=== PATIENT | male | born 1995 | race Two or more races ===

== ENCOUNTER 2023-11-07 23:52 | Emergency (ER) | payer OTHER, SELFPAY ==
[2023-11-08 00:26] LABS: BASO # 0.1 10^3/uL (0.0-0.2); BASO % 0.5 % (0.0-1.0); EOS # 1.7 10^3/uL (0.0-0.5); EOS % 15.2 % (0.0-3.0); HEMATOCRIT 48.5 % (42.0-52.0); HEMOGLOBIN 17.3 g/dl (13.5-17.5); LYMPH # 3.9 10^3/uL (1.5-5.0); LYMPH % 34.7 % (24.0-44.0); MEAN CORPUSCULAR HEMOGLOBIN 29.5 pg (27.0-33.0); MEAN CORPUSCULAR HGB CONC 35.7 g/dl (32.0-36.5); MEAN CORPUSCULAR VOLUME 82.6 fl (80.0-96.0); MONO # 1.3 10^3/uL (0.0-0.8); MONO % 11.2 % (2.0-8.0); NEUTROPHILS # 4.3 10^3/uL (1.5-8.5); NEUTROPHILS % 38.1 % (36.0-66.0); PLATELET COUNT, AUTOMATED 203 10^3/uL (150-450); RED BLOOD COUNT 5.87 10^6/uL (4.30-6.10); WHITE BLOOD COUNT 11.3 10^3/uL (4.0-10.0)
[2023-11-08 00:50] LABS: LIPASE 44 U/L (12-53)
[2023-11-08 00:53] LABS: ALBUMIN 4.1 G/DL (3.2-5.2); ALKALINE PHOSPHATASE 87 U/L (46-116); ALT/SGPT 44 U/L (7.0-40); AST/SGOT 20 U/L (<34); BILIRUBIN,DIRECT 0.2 MG/DL (<0.4); BILIRUBIN,TOTAL 0.8 MG/DL (0.3-1.2); BLOOD UREA NITROGEN 13 MG/DL (9-23); CALCIUM LEVEL 8.9 MG/DL (8.5-10.1); CARBON DIOXIDE LEVEL 27 MMOL/L (20-31); CHLORIDE LEVEL 106 MMOL/L (98-107); CREATININE FOR GFR 0.91 MG/DL (0.70-1.30); GLOMERULAR FILTRATION RATE > 60.0 (>60); GLUCOSE, FASTING 85 MG/DL (60-100); SODIUM LEVEL 138 MMOL/L (136-145); TOTAL PROTEIN 6.9 G/DL (5.7-8.2)
[2023-11-08] MEDS ORDERED: ISOVUE-370 76% 100ML VIAL As Ordered ONE (06:23)
[2023-11-08] MEDS: KETOROLAC 30 MG/ML 1ML VIAL IV ONE (06:38)
[2023-11-08 06:39] LABS: C REACTIVE PROTEIN QUANTITATIV < 0.40 MG/DL (<1.0)
[2023-11-08] MEDS ORDERED: ACET325C5 PO (08:13)
[2023-11-08] MEDS ORDERED: IBUP-1022 PO (08:13)
[2023-11-08 08:30] VITALS: BP 94/51
[2023-11-08 08:47] VITALS: TEMP 97.8; O2SAT 98
[2023-11-08] MEDS: ACETAMINOPHEN 500 MG TAB PO ONE (08:51)
== END 2023-11-08 09:07 | disposition home or self-care (01) ==
LOC: M ED 23:52
DX: R10.33 Periumbilical pain (principal); K52.89 Other specified noninfective gastroenteritis and colitis; F17.200 Nicotine dependence, unspecified, uncomplicated; Z79.1 Long term (current) use of non-steroidal anti-inflammatories (NSAID)
CPT/HCPCS: 74177; 80048; 80076; 81001; 83690; 85025; 86140; 96374; 99285; J1885; Q9967

== ENCOUNTER 2023-12-07 09:41 | Emergency (ER) | payer MEDICAID, SELFPAY ==
[~2023-12-07] VITALS: Ht 182.9 cm; Wt 88.8 kg
[~2023-12-07 09:41] MED LIST: ACET325C5 PO; ACET32TAB PO; CIPR-249 PO; IBUP-1022 PO; TRAM50TA2 PO
[2023-12-07 12:49] LABS: BASO % 0.4 % (0.0-1.0); EOS # 0.9 10^3/uL (0.0-0.5); EOS % 12.5 % (0.0-3.0); HEMATOCRIT 47.6 % (42.0-52.0); HEMOGLOBIN 17.3 g/dl (13.5-17.5); LYMPH # 2.1 10^3/uL (1.5-5.0); LYMPH % 29.2 % (24.0-44.0); MEAN CORPUSCULAR HEMOGLOBIN 30.4 pg (27.0-33.0); MEAN CORPUSCULAR HGB CONC 36.3 g/dl (32.0-36.5); MEAN CORPUSCULAR VOLUME 83.5 fl (80.0-96.0); MONO # 0.8 10^3/uL (0.0-0.8); MONO % 11.1 % (2.0-8.0); NEUTROPHILS # 3.4 10^3/uL (1.5-8.5); NEUTROPHILS % 46.7 % (36.0-66.0); PLATELET COUNT, AUTOMATED 191 10^3/uL (150-450); WHITE BLOOD COUNT 7.3 10^3/uL (4.0-10.0)
[2023-12-07 12:54] LABS: LIPASE 36 U/L (12-53)
[2023-12-07 12:56] LABS: AMYLASE 80 U/L (30-118)
[2023-12-07 12:57] LABS: ALBUMIN 4.2 G/DL (3.2-5.2); ALKALINE PHOSPHATASE 88 U/L (46-116); ALT/SGPT 39 U/L (7.0-40); AST/SGOT 18 U/L (<34); BILIRUBIN,DIRECT 0.5 MG/DL (<0.4); BILIRUBIN,TOTAL 1.8 MG/DL (0.3-1.2); BLOOD UREA NITROGEN 11 MG/DL (9-23); CALCIUM LEVEL 9.3 MG/DL (8.5-10.1); CARBON DIOXIDE LEVEL 30 MMOL/L (20-31); CHLORIDE LEVEL 104 MMOL/L (98-107); CREATININE FOR GFR 0.98 MG/DL (0.70-1.30); GLOMERULAR FILTRATION RATE > 60.0 (>60); GLUCOSE, FASTING 93 MG/DL (60-100); POTASSIUM SERUM 3.7 MMOL/L (3.5-5.1); SODIUM LEVEL 138 MMOL/L (136-145); TOTAL PROTEIN 6.9 G/DL (5.7-8.2)
[2023-12-07] MEDS ORDERED: METOCLOPRAMIDE 5 MG TAB PO ONE (17:45)
[2023-12-07 18:17] LABS: MONO REFLEX EBV COMP NEGATIVE (NEGATIVE)
[2023-12-07 18:39] LABS: HIV 1&2 SCREEN NEGATIVE (NEGATIVE)
[2023-12-07] MEDS ORDERED: REGL10TA6 PO (18:40)
[2023-12-07] MEDS ORDERED: PILL CUTTER 1 EACH XX ONE (18:41)
[2023-12-07 18:47] LABS: HEPATITIS B CORE ANTIBODY IGM NEGATIVE (NEGATIVE)
[2023-12-07 18:48] LABS: HEPATITIS C VIRUS ABY INDEX 0.03 INDEX (<0.8)
[2023-12-07 18:55] LABS: HEPATITIS B SURFACE ANTIGEN POSITIVE (NEGATIVE)
[2023-12-07 19:05] VITALS: BP 116/74; TEMP 97.6; O2SAT 97
[2023-12-07] MEDS: METOCLOPRAMIDE 10MG TAB PO ONE (19:07)
[2023-12-13 12:45] LABS: EBV VIRAL CAPSID AG IGM < 36.00 U/mL (<36.00)
[2023-12-13 12:47] LABS: EBV AB TO NUCLEAR ANTIGEN < 18.00 U/mL (<18.00)
[2023-12-13 12:53] LABS: EHRLICHIA CAFFEENSIS IGM <1:20 (<1:20)
[2023-12-13 12:54] LABS: ROCKY MTN SPOTTED FEVER IGM NOT DETECTED (NOT DETECT)
[2023-12-13 12:55] LABS: LYME TOTAL ANTIBODY CIA <= 0.90 INDEX (<=0.90)
[2023-12-16 09:08] LABS: HBsAG CONFIRM SCRN Confirm. indicated (Negative); HBsAG NEUTRALIZATION Positive (.)
== END 2023-12-07 19:08 | disposition home or self-care (01) ==
LOC: MERGE 09:41 → M ED 09:41
DX: R53.83 Other fatigue (principal); R10.9 Unspecified abdominal pain; R63.4 Abnormal weight loss; R63.0 Anorexia; Z87.891 Personal history of nicotine dependence; Z79.899 Other long term (current) drug therapy

== ENCOUNTER 2023-12-08 19:31 | Emergency (ER) | payer MEDICAID, SELFPAY ==
[~2023-12-08] VITALS: Ht 185.4 cm; Wt 89.2 kg
[~2023-12-08 19:31] MED LIST changes: +REGL10TA6 PO
[2023-12-08 22:32] LABS: APPEARANCE, URINE CLEAR (CLEAR); BACTERIA, URINE AUTO NEGATIVE (NEGATIVE); BILIRUBIN, URINE AUTO NEGATIVE (NEGATIVE); BLOOD, URINE BLOOD NEGATIVE (NEGATIVE); COLOR, URINE YELLOW (YELLOW); GLUCOSE, URINE (UA) AUTO NEGATIVE (NEGATIVE); KETONE, URINE AUTO NEGATIVE (NEGATIVE); LEUKOCYTE ESTERASE, URINE AUTO NEGATIVE (NEGATIVE); NITRITE, URINE AUTO NEGATIVE (NEGATIVE); PROTEIN, URINE AUTO NEGATIVE (NEGATIVE); RBC, URINE AUTO 0 /HPF (0-3); SPECIFIC GRAVITY URINE AUTO 1.006 (1.002-1.035); SQUAMOUS EPITHELIAL CELL UR AU 0 /HPF (0-6); UROBILINOGEN, URINE AUTO 0.2 mg/dL (0.0-2.0); WBC, URINE AUTO 1 /HPF (0-3)
[2023-12-08 22:33] LABS: BASO % 0.5 % (0.0-1.0); EOS % 12.2 % (0.0-3.0); HEMATOCRIT 46.2 % (42.0-52.0); HEMOGLOBIN 17.1 g/dl (13.5-17.5); LYMPH # 3.1 10^3/uL (1.5-5.0); MEAN CORPUSCULAR HEMOGLOBIN 30.5 pg (27.0-33.0); MEAN CORPUSCULAR VOLUME 82.4 fl (80.0-96.0); MONO # 0.8 10^3/uL (0.0-0.8); MONO % 9.8 % (2.0-8.0); NEUTROPHILS # 3.5 10^3/uL (1.5-8.5); NEUTROPHILS % 41.3 % (36.0-66.0); PLATELET COUNT, AUTOMATED 189 10^3/uL (150-450); RED BLOOD COUNT 5.61 10^6/uL (4.30-6.10); WHITE BLOOD COUNT 8.6 10^3/uL (4.0-10.0)
[2023-12-08 22:53] LABS: INR 1.13; PARTIAL THROMBOPLASTIN TIME 27.6 SECONDS (24.8-34.2); PROTHROMBIN TIME 14.2 SECONDS (12.5-14.5)
[2023-12-08 22:58] LABS: LIPASE 34 U/L (12-53)
[2023-12-08 23:00] LABS: ALBUMIN 4.2 G/DL (3.2-5.2); ALKALINE PHOSPHATASE 86 U/L (46-116); ALT/SGPT 35 U/L (7.0-40); AST/SGOT 13 U/L (<34); BILIRUBIN,DIRECT 0.5 MG/DL (<0.4); BILIRUBIN,TOTAL 1.5 MG/DL (0.3-1.2); BLOOD UREA NITROGEN 13 MG/DL (9-23); CALCIUM LEVEL 8.9 MG/DL (8.5-10.1); CARBON DIOXIDE LEVEL 26 MMOL/L (20-31); CHLORIDE LEVEL 107 MMOL/L (98-107); GLOMERULAR FILTRATION RATE > 60.0 (>60); GLUCOSE, FASTING 86 MG/DL (60-100); POTASSIUM SERUM 3.6 MMOL/L (3.5-5.1); SODIUM LEVEL 141 MMOL/L (136-145)
[2023-12-08] MEDS: NS 1,000 ML IV ONE (23:24)
[2023-12-09] MEDS: ONDANSETRON 4MG 2ML VIAL IV ONE (01:06)
[2023-12-09 01:11] VITALS: BP 127/69; TEMP 98.2; O2SAT 100
[2023-12-09] MEDS ORDERED: ONDA-284 PO (01:28)
[2023-12-10] MEDS ORDERED: PROT1TAB2 PO (01:26)
== END 2023-12-09 02:17 | disposition home or self-care (01) ==
LOC: M ED 19:31
DX: R10.11 Right upper quadrant pain (principal); R53.83 Other fatigue; R11.2 Nausea with vomiting, unspecified; K73.9 Chronic hepatitis, unspecified; Z87.891 Personal history of nicotine dependence; Z79.899 Other long term (current) drug therapy
CPT/HCPCS: 76705; 80048; 80076; 81001; 83690; 85025; 85610; 85730; 87086; 96361; 96374; 99284; J2405

== ENCOUNTER 2023-12-09 21:56 | Emergency (ER) | payer MEDICAID, SELFPAY ==
[~2023-12-09 21:56] MED LIST changes: +ONDA-284 PO
[2023-12-09 23:01] LABS: BASO % 0.4 % (0.0-1.0); EOS % 13.6 % (0.0-3.0); HEMATOCRIT 45.7 % (42.0-52.0); HEMOGLOBIN 16.6 g/dl (13.5-17.5); LYMPH # 2.4 10^3/uL (1.5-5.0); MEAN CORPUSCULAR HEMOGLOBIN 30.3 pg (27.0-33.0); MEAN CORPUSCULAR HGB CONC 36.3 g/dl (32.0-36.5); MEAN CORPUSCULAR VOLUME 83.4 fl (80.0-96.0); MONO # 0.7 10^3/uL (0.0-0.8); MONO % 8.6 % (2.0-8.0); NEUTROPHILS # 3.4 10^3/uL (1.5-8.5); NEUTROPHILS % 45.3 % (36.0-66.0); PLATELET COUNT, AUTOMATED 180 10^3/uL (150-450); RED BLOOD COUNT 5.48 10^6/uL (4.30-6.10); WHITE BLOOD COUNT 7.6 10^3/uL (4.0-10.0)
[2023-12-09 23:26] LABS: LIPASE 31 U/L (12-53)
[2023-12-09 23:28] LABS: ALBUMIN 4.1 G/DL (3.2-5.2); ALKALINE PHOSPHATASE 83 U/L (46-116); ALT/SGPT 36 U/L (7.0-40); AST/SGOT 17 U/L (<34); BILIRUBIN,DIRECT 0.5 MG/DL (<0.4); BILIRUBIN,TOTAL 1.5 MG/DL (0.3-1.2); BLOOD UREA NITROGEN 10 MG/DL (9-23); CALCIUM LEVEL 8.9 MG/DL (8.5-10.1); CARBON DIOXIDE LEVEL 28 MMOL/L (20-31); CHLORIDE LEVEL 107 MMOL/L (98-107); CREATININE FOR GFR 0.92 MG/DL (0.70-1.30); GLOMERULAR FILTRATION RATE > 60.0 (>60); GLUCOSE, FASTING 88 MG/DL (60-100); POTASSIUM SERUM 3.8 MMOL/L (3.5-5.1); SODIUM LEVEL 141 MMOL/L (136-145); TOTAL PROTEIN 6.9 G/DL (5.7-8.2)
[2023-12-10] MEDS: ONDANSETRON 4MG 2ML VIAL IV ONE (00:31)
[2023-12-10] MEDS: NS 1,000 ML IV ONE (00:32)
[2023-12-10] MEDS ORDERED: ISOVUE-370 76% 100ML VIAL As Ordered ONE (00:39)
[2023-12-10] MEDS ORDERED: PROT1TAB2 PO (01:26)
[2023-12-10 01:27] VITALS: BP 133/75; TEMP 97.6; O2SAT 98
[2023-12-10] MEDS: PANTOPRAZOLE 40MG TAB (PROTONIX) PO ONE (01:44)
== END 2023-12-10 01:46 | disposition home or self-care (01) ==
LOC: M ED 21:56
DX: R11.2 Nausea with vomiting, unspecified (principal); B18.1 Chronic viral hepatitis B without delta-agent; Z79.899 Other long term (current) drug therapy
CPT/HCPCS: 74177; 80048; 80076; 83690; 85025; 86850; 86900; 86901; 93041; 96374; 99284; J2405; Q9967

== ENCOUNTER 2023-12-21 08:42 | Emergency (ER) | payer MEDICAID, SELFPAY ==
[~2023-12-21] VITALS: Ht 188 cm; Wt 86.8 kg
[~2023-12-21 08:42] MED LIST changes: +PROT1TAB2 PO
[2023-12-21] MEDS: NORCO, ANEXSIA 5/325MG TABLET (HYDROcodone/ACETAMINOPHEN) PO ONE (10:16)
[2023-12-21 10:39] LABS: BASO % 0.5 % (0.0-1.0); EOS # 0.9 10^3/uL (0.0-0.5); EOS % 13.8 % (0.0-3.0); HEMATOCRIT 47.2 % (42.0-52.0); HEMOGLOBIN 17.2 g/dl (13.5-17.5); LYMPH # 1.9 10^3/uL (1.5-5.0); LYMPH % 30.7 % (24.0-44.0); MEAN CORPUSCULAR HEMOGLOBIN 30.4 pg (27.0-33.0); MEAN CORPUSCULAR HGB CONC 36.4 g/dl (32.0-36.5); MEAN CORPUSCULAR VOLUME 83.4 fl (80.0-96.0); MONO # 0.7 10^3/uL (0.0-0.8); MONO % 11.1 % (2.0-8.0); NEUTROPHILS # 2.8 10^3/uL (1.5-8.5); NEUTROPHILS % 43.7 % (36.0-66.0); PLATELET COUNT, AUTOMATED 160 10^3/uL (150-450); RED BLOOD COUNT 5.66 10^6/uL (4.30-6.10); WHITE BLOOD COUNT 6.3 10^3/uL (4.0-10.0)
[2023-12-21 10:51] LABS: INR 1.13; PARTIAL THROMBOPLASTIN TIME 27.1 SECONDS (24.8-34.2); PROTHROMBIN TIME 14.2 SECONDS (12.5-14.5)
[2023-12-21 11:03] LABS: LIPASE 34 U/L (12-53)
[2023-12-21 11:04] LABS: ALBUMIN 4.1 G/DL (3.2-5.2); ALKALINE PHOSPHATASE 86 U/L (46-116); ALT/SGPT 45 U/L (7.0-40); AMYLASE 74 U/L (30-118); AST/SGOT 19 U/L (<34); BILIRUBIN,DIRECT 0.5 MG/DL (<0.4); BILIRUBIN,TOTAL 1.7 MG/DL (0.3-1.2); BLOOD UREA NITROGEN 9 MG/DL (9-23); CALCIUM LEVEL 9.3 MG/DL (8.5-10.1); CARBON DIOXIDE LEVEL 28 MMOL/L (20-31); CHLORIDE LEVEL 105 MMOL/L (98-107); CREATININE FOR GFR 1.06 MG/DL (0.70-1.30); GLOMERULAR FILTRATION RATE > 60.0 (>60); GLUCOSE, FASTING 90 MG/DL (60-100); POTASSIUM SERUM 3.6 MMOL/L (3.5-5.1); SODIUM LEVEL 138 MMOL/L (136-145); TOTAL PROTEIN 6.6 G/DL (5.7-8.2)
[2023-12-21] MEDS ORDERED: OMEP-173 PO (12:43)
[2023-12-21] MEDS ORDERED: ONDA-282 PO (12:43)
[2023-12-21 12:49] VITALS: BP 109/76; TEMP 97.5; O2SAT 97
[2023-12-21] MEDS: OMEPRAZOLE 20MG CAP PO ONE (13:07)
== END 2023-12-21 13:13 | disposition home or self-care (01) ==
LOC: M ED 08:42
DX: R10.9 Unspecified abdominal pain (principal); B18.1 Chronic viral hepatitis B without delta-agent; Z79.899 Other long term (current) drug therapy

== ENCOUNTER → 2023-12-28 | Outpatient (CLI) | payer MEDICAID, SELFPAY ==
[~2023-12-28] MED LIST changes: +OMEP-173 PO; +ONDA-282 PO
[2023-12-28 10:30] LABS: ERYTHROCYTE SEDIMENTATION RATE 3 mm/hr (0-15)
[2023-12-28 10:55] LABS: C REACTIVE PROTEIN QUANTITATIV < 0.40 MG/DL (<1.0)
[2023-12-28 12:58] LABS: BASO % 0.5 % (0.0-1.0); EOS % 14.8 % (0.0-3.0); HEMATOCRIT 49.4 % (42.0-52.0); HEMOGLOBIN 17.6 g/dl (13.5-17.5); LYMPH # 1.7 10^3/uL (1.5-5.0); LYMPH % 25.4 % (24.0-44.0); MEAN CORPUSCULAR HEMOGLOBIN 29.9 pg (27.0-33.0); MEAN CORPUSCULAR HGB CONC 35.6 g/dl (32.0-36.5); MEAN CORPUSCULAR VOLUME 83.9 fl (80.0-96.0); MONO # 0.7 10^3/uL (0.0-0.8); NEUTROPHILS # 3.2 10^3/uL (1.5-8.5); NEUTROPHILS % 48.1 % (36.0-66.0); PLATELET COUNT, AUTOMATED 188 10^3/uL (150-450); RED BLOOD COUNT 5.89 10^6/uL (4.30-6.10); WHITE BLOOD COUNT 6.6 10^3/uL (4.0-10.0)
[2023-12-28 12:59] LABS: FREE T4 1.33 NG/DL (0.89-1.76); THYROID STIMULATING HORMONE 0.864 uIU/ML (0.55-4.78)
[2023-12-29 10:52] LABS: HEPATITIS A IgG TOTAL REACTIVE (NON-REACTIVE); HEPATITIS B CORE ANTIBODY IGG REACTIVE (NON-REACTIVE)
[2023-12-29 13:12] LABS: HBV IU/mL NOT DETECTED (NOT DETECTED); log 10 HBV IU/mL NOT DETECTED Log IU/mL (NOT DETECTED)
[2023-12-31 20:03] LABS: HEPATITIS BE ANTIBODY Reactive (NON REACTIV); HEPATITIS BE ANTIGEN Nonreactive (NON REACTIV)
[2024-01-12 15:47] LABS: ALPHA 2-MACROGLOBULINS,QN 183 mg/dL (106-279); ALT (SGPT) P5P 33 U/L (9-46); APOLIPOPROTEIN A-1 109 mg/dL (94-176); BILIRUBIN, TOTAL 1.4 mg/dL (0.2-1.2); FIBROSIS SCORE 0.51; FIBROSIS STAGE MODERATE FIBROSIS (F0); GGT 18 U/L (3-70); HAPTOGLOBIN 21 mg/dL (43-212); NECROINFLAM ACT GRADE NO ACTIVITY (A0); NECROINFLAM ACT SCORE 0.22
== END ==
LOC: M PLALAB 08:30
PROVIDERS: ATTEND Internal Medicine Infectious Disease
DX: B18.1 Chronic viral hepatitis B without delta-agent (principal); D72.10 Eosinophilia, unspecified; R63.4 Abnormal weight loss

== ENCOUNTER → 2024-01-02 | Outpatient (REF) | payer OTHER, SELFPAY | LOC: M SFHCPLAZ 12:40 | PROVIDERS: ATTEND Internal Medicine Infectious Disease | DX: D72.10 Eosinophilia, unspecified (principal) ==

== ENCOUNTER 2024-01-04 09:33 | Emergency (ER) | payer MEDICAID, OTHER, SELFPAY ==
[~2024-01-04] VITALS: Ht 185.4 cm; Wt 84.8 kg
[2024-01-04 11:06] LABS: BASO % 0.3 % (0.0-1.0); EOS # 0.8 10^3/uL (0.0-0.5); EOS % 12.7 % (0.0-3.0); HEMATOCRIT 49.1 % (42.0-52.0); HEMOGLOBIN 17.4 g/dl (13.5-17.5); LYMPH # 2.1 10^3/uL (1.5-5.0); LYMPH % 31.9 % (24.0-44.0); MEAN CORPUSCULAR HEMOGLOBIN 29.8 pg (27.0-33.0); MEAN CORPUSCULAR HGB CONC 35.4 g/dl (32.0-36.5); MEAN CORPUSCULAR VOLUME 84.2 fl (80.0-96.0); MONO # 0.6 10^3/uL (0.0-0.8); MONO % 8.8 % (2.0-8.0); PLATELET COUNT, AUTOMATED 169 10^3/uL (150-450); RED BLOOD COUNT 5.83 10^6/uL (4.30-6.10); WHITE BLOOD COUNT 6.5 10^3/uL (4.0-10.0)
[2024-01-04 11:33] LABS: ALBUMIN 4.1 G/DL (3.2-5.2); BILIRUBIN,DIRECT 0.6 MG/DL (<0.4); BILIRUBIN,TOTAL 1.8 MG/DL (0.3-1.2); MAGNESIUM LEVEL 2.2 MG/DL (1.8-2.4); TOTAL PROTEIN 6.7 G/DL (5.7-8.2)
[2024-01-04 11:35] LABS: THYROID STIMULATING HORMONE 0.61 uIU/ML (0.55-4.78)
[2024-01-04 13:50] VITALS: BP 120/68; TEMP 97; O2SAT 100
== END 2024-01-04 13:50 | disposition home or self-care (01) ==
LOC: M ED 09:33
DX: R10.9 Unspecified abdominal pain (principal); B19.10 Unspecified viral hepatitis B without hepatic coma; Z79.899 Other long term (current) drug therapy

== ENCOUNTER 2024-01-05 19:29 | Emergency (ER) | payer SELFPAY ==
[~2024-01-05] VITALS: Ht 188 cm; Wt 84.3 kg
[2024-01-05 19:30] VITALS: BP 109/73; TEMP 97.9; O2SAT 99
== END 2024-01-05 21:54 | disposition home or self-care (01) ==
LOC: M ED 19:29
DX: R10.9 Unspecified abdominal pain (principal); R63.4 Abnormal weight loss; B19.10 Unspecified viral hepatitis B without hepatic coma; Z79.899 Other long term (current) drug therapy